=== PATIENT | female | born 1995 | race African-American/Black ===

== ENCOUNTER 2016-10-14 20:42 | Emergency (ER) | payer MEDICAID ==
[2016-10-14 23:13] LABS: ABSOLUTE BASOPHILS # (AUTO) 0.1 10^3/uL (0.0-0.2); ABSOLUTE EOSINOPHILS # (AUTO) 0.1 10^3/uL (0.0-0.6); ABSOLUTE LYMPHOCYTES (AUTO) 2.8 10^3/uL (0.5-4.7); ABSOLUTE MONOCYTES (AUTO) 0.8 10^3/uL (0.1-1.4); ABSOLUTE NEUT (AUTO) 5.1 10^3/uL (1.7-8.2); BASOPHILS % (AUTO) 0.7 % (0-2); EOSINOPHILS % (AUTO) 1.7 % (0-6); HEMATOCRIT 37.6 % (36.0-47.0); HEMOGLOBIN 12.7 g/dL (12.0-15.5); HGB HCT DIFFERENCE 0.5; LYMPHOCYTES % (AUTO) 31.8 % (13-45); MEAN CORPUSCULAR HEMOGLOBIN 26.1 pg (27.0-33.4); MEAN CORPUSCULAR HGB CONC 33.7 g/dL (32.0-36.0); MEAN CORPUSCULAR VOLUME 77 fl (80-97); MONOCYTES % (AUTO) 8.6 % (3-13); RED BLOOD COUNT 4.87 10^6/uL (3.72-5.28); RED CELL DISTRIBUTION WIDTH 14.6 % (11.5-14.0); SEGMENTED NEUTROPHILS % (AUTO) 57.2 % (42-78); WHITE BLOOD COUNT 8.9 10^3/uL (4.0-10.5)
[2016-10-14 23:25] LABS: ANION GAP 12 (5-19); BLOOD UREA NITROGEN 13 mg/dL (7-20); CALCIUM 9.8 mg/dL (8.4-10.2); CARBON DIOXIDE 24 mmol/L (22-30); CHLORIDE 103 mmol/L (98-107); CREATININE RESULT 0.59 mg/dL (0.52-1.25); GLUCOSE 84 mg/dL (75-110); POTASSIUM 4.2 mmol/L (3.6-5.0); SODIUM 139.4 mmol/L (137-145)
[2016-10-14 23:29] LABS: APPEARANCE,URINE CLEAR; BILIRUBIN,URINE NEGATIVE (NEGATIVE); GLUCOSE, URINE NEGATIVE (NEGATIVE); KETONES,URINE NEGATIVE (NEGATIVE); LEUKOCYTE ESTERASE,URINE NEGATIVE (NEGATIVE); NITRITE,URINE NEGATIVE (NEGATIVE); PROTEIN,URINE NEGATIVE (NEGATIVE); URINE SPECIFIC GRAVITY 1.015
--- NOTE | 2016-10-15 00:42 | ER Document Report ---
ED GI/ - General Information source: Patient TRAVEL OUTSIDE OF THE [place] IN LAST 30 DAYS: No - HPI Patient complains to provider of: Pelvic pain - cramping, , Vaginal bleeding, Vaginal discharge - intermittent Quality of pain: Cramping Menstrual period history: <OSCAR FARRIS - Last Filed: 10/15/16 02:33> <ENRIQUEALBERT JACI - Last Filed: 10/15/16 04:55> - General Chief Complaint: Vaginal Bleeding Stated Complaint: VAGINAL BLEEDING Time Seen by Provider: 10/14/16 22:40 Notes: Patient is a 21 year old female who presents to the ED with complaints of vaginal bleeding during . Patient is currently 10 weeks and is seen by the health department. She is suppose to have her first ultrasound tomorrow. Patient states she is having intermittent discharge and cramping. Patient is taking her vitamin. Patient denies any trouble with urination. Patient has not had intercourse recently . This is patients first . No other concerns or complaints at this time. (OSCAR FARRIS) - Related Data Allergies/Adverse Reactions: No Known Allergies Allergy (Verified 03/09/16 08:29) Past Medical History - General Information source: Patient - Social History Smoking Status: Unknown if Ever Smoked Family History: Reviewed & Not Pertinent Patient has suicidal ideation: No Patient has homicidal ideation: No Renal/ Medical History: Denies: Hx Peritoneal Dialysis - Immunizations Hx Diphtheria, Pertussis, Tetanus Vaccination: Yes <OSCAR FARRIS - Last Filed: 10/15/16 02:33> Review of Systems - Review of Systems Constitutional: No symptoms reported EENT: No symptoms reported Cardiovascular: No symptoms reported Respiratory: No symptoms reported Gastrointestinal: See HPI, Abdominal pain - intermittent pelvic cramping Genitourinary: No symptoms reported Female Genitourinary: See HPI, , Vaginal discharge - intermittent, Vaginal bleeding, Other - plevic cramping Musculoskeletal: No symptoms reported Skin: No symptoms reported Hematologic/Lymphatic: No symptoms reported Neurological/Psychological: No symptoms reported <OCSAR FARRIS - Last Filed: 10/15/16 02:33> Physical Exam - General General appearance: Appears well, Alert In distress: None - HEENT Head: Normocephalic, Atraumatic Eyes: Normal Extraocular movements intact: Yes Pupils: PERRL - Respiratory Respiratory status: No respiratory distress - Cardiovascular Rhythm: Regular - Abdominal Inspection: Normal - Back Back: Normal - Extremities General upper extremity: Normal inspection, Normal ROM General lower extremity: Normal inspection, Normal ROM - Neurological Neuro grossly intact: Yes Cognition: Normal Orientation: AAOx4 [place] Coma Scale Eye Opening: Spontaneous [place] Coma Scale Verbal: Oriented Heather Coma Scale Motor: Obeys Commands [place] Coma Scale Total: 15 Speech: Normal - Psychological Associated symptoms: Normal affect, Normal mood - Skin Skin Temperature: Warm Skin Moisture: Dry Skin Color: Normal <OSCAR FARRIS - Last Filed: 10/15/16 02:33> Course - Laboratory Result Diagrams: 10/14/16 22:00 10/14/16 22:00 <OSCAR FARRIS - Last Filed: 10/15/16 02:33> - Laboratory Result Diagrams: 10/14/16 22:00 10/14/16 22:00 - Diagnostic Test Radiology reviewed: Image reviewed, Reports reviewed <ALBERT NUNEZ - Last Filed: 10/15/16 04:55> - Re-evaluation Re-evalutation: 10/15/16 Patient had bedside ultrasound initially which did not correlate with total hCG. Patient had formal ultrasound which is showing a blighted ovum. Patient given the results. Apparently has been trying to get for the last 2 years. Patient does not want pelvic exam. She was just like to go home and follow-up with her ENGINEERING COORDINATOR. Stable for discharge. Return for any worsening or concerning symptoms. (ALBERT NUNEZ) - Vital Signs Vital signs: Temp Pulse Resp BP Pulse Ox 98.3 F 99 20 120/74 99 10/14/16 21:10 10/14/16 21:10 10/14/16 21:10 10/14/16 21:10 10/14/16 21:10 - Laboratory Laboratory results interpreted by co: 10/14/16 10/14/16 10/14/16 22:00 22:00 22:00 MCV 77 L MCH 26.1 L RDW 14.6 H Beta HCG, Quant 79948.00 H Urine Urobilinogen 4.0 H Urine HCG, Qual POSITIVE H Discharge <OSCAR FARRIS - Last Filed: 10/15/16 02:33> <ALBERT NUNEZ - Last Filed: 10/15/16 04:55> - Discharge Clinical Impression: Blighted ovum Condition: Stable Disposition: HOME, SELF-CARE Additional Instructions: Please follow-up with your ENGINEERING COORDINATOR in the morning as scheduled. Please take a copy of the ultrasound report with you. Forms: Return to Work Scribe Attestation: 10/15/16 04:55 I personally performed the services described in the documentation, reviewed and edited the documentation which was dictated to the scribe in my presence, and it accurately records my words and actions. (ALBERT NUNEZ) Scribe Documentation - Scribe Written by Tracy:: tracy Hernandez, 10/15/2016, 0100 acting as scribe for :: Enrique <OSCAR FARRIS - Last Filed: 10/15/16 02:33>
--- NOTE | 2016-10-15 02:08 | RADIOLOGY REPORT (SQ) ---
EXAM DESCRIPTION: U/S OB TRANSVAGINAL W/O DOP COMPLETED DATE/TIME: 10/15/2016 1:37 am REASON FOR STUDY: evaluate for IUP COMPARISON: None. TECHNIQUE: Transvaginal static and realtime grayscale images acquired of the pelvis. Additional nicole cted spectral and color Doppler images recorded. All images stored on PACs. [facility] LIMITATIONS: None. FINDINGS: UTERUS: No visualized intrauterine . Irregular intrauterine gestational sac kalyn ures with mean sac diameter of 1.8 cm which if viable would correspond with a gestational age of 6 we eks and 5 days. No definite yolk sac. RIGHT ADNEXA: Normal ovary with normal vascular flow. No adnexal free fluid. No adnexal masses. 3.0 cm. LEFT ADNEXA: Normal ovary with normal vascular flow. No adnexal free fluid. No adnexal masses. 3.1 cm. FREE FLUID: None. OTHER: No other significant finding. IMPRESSION: NO VISUALIZED VIABLE . Irregular intrauterine gestational sac measures 1.8 cm in mean sac diameter and may represent an anembryonic gestation ("blighted ovum"). Follow-up ultraso und recommended in 2 weeks or sooner as clinically warranted. ECTOPIC CANNOT BE EXCLUDED. FOLLOW-UP ULTRASOUND AND SERIAL BHCG LEVELS STRONGLY RECOMMENDED TO ACCURATELY ASSESS STATU S. COMMENT: HCG levels in early chart *3 weeks: 5-50 mIU/ml *4 weeks: 5-426 mIU/ml *5 weeks: 18-7,340 mIU/ml *6 weeks: 1,080-56,500 mIU/ml *7-8 weeks: 7,560-229,000 mIU/ml *9-12 weeks: 25,700- 288,000 mIU/ml *13-16 weeks: 13,300-254,000 mIU/ml *17-24 weeks: 4,060-165,400 mIU/ml *25-40 weeks: 3,640-117,000 mIU/ml TECHNICAL DOCUMENTATION: JOB ID: [id number] [employer]- All Rights Reserved
[2016-10-15 08:45] VITALS: BP 128/87
== END 2016-10-15 02:34 | disposition home or self-care (01) ==
LOC: ER 20:42
DX: O02.0 Blighted ovum and nonhydatidiform mole (principal); O46.91 Antepartum hemorrhage, unspecified, first trimester; Z3A.10 10 weeks gestation of pregnancy
CPT/HCPCS: 36415; 76817; 80048; 81001; 81025; 84702; 85025; 86900; 86901; 99284

== ENCOUNTER → 2018-01-04 | Outpatient (CLI) | payer MEDICAID | LOC: OD 14:12 | PROVIDERS: ATTEND Specialist | DX: R07.0 Pain in throat (principal) | CPT/HCPCS: 87880 ==

== ENCOUNTER 2018-05-31 12:41 | Outpatient (CLI) | payer MEDICAID ==
--- NOTE | 2018-05-31 13:47 | Non Stress Test Report ---
Non Stress Test Datetime Report Generated by CPN: 05/31/2018 13:47 DEMOGRAPHIC EGA NST: 34.4 INDICATION Indication for Study: Diabetes Mellitus; Ordered by Provider VITAL SIGNS Temperature - NST: 98.0 Pulse - NST: 109 Pulse - NST: 109 RESP - NST: 16 NBPSYS NST: 112 NBPDIA NST: 69 MONITORING Monitor Explained: Monitor Explained; Test Explained; Patient Verbalized Understanding Time on Monitor: 05/31/2018 12:55 Time on Monitor: 05/31/2018 13:05 Time off Monitor: 05/31/2018 13:34 Time off Monitor: 05/31/2018 13:34 NST Duration: 39 NST INTERVENTIONS NST Interventions: None Physician Notified NST: A. Jansen, CNM BABY A: [id number] BABY A Movement : Present Contraction Frequency : none FHR Baseline : 140 Accelerations : 15X15 Decelerations : None Variability : Moderate 6-25bpm NST Review: Questionable if Meets Criteria for Reactive NST NST Review and Verified By : BL ISABELAND, RN NST Results: Reactive NST REPORT Report Trigger: Send Report
== END 2018-05-31 13:37 | disposition home or self-care (01) ==
LOC: LC 12:41
PROVIDERS: ATTEND Obstetrics & Gynecology
PROC: 4A1HXCZ Monitoring of Products of Conception, Cardiac Rate, External Approach (ICD-10-PCS; principal; 2018-05-31)
DX: O24.913 Unspecified diabetes mellitus in pregnancy, third trimester (principal); Z3A.34 34 weeks gestation of pregnancy
CPT/HCPCS: 59025

== ENCOUNTER 2018-06-15 11:06 | Outpatient (CLI) | payer MEDICAID ==
--- NOTE | 2018-06-15 13:50 | RADIOLOGY REPORT (SQ) ---
EXAM DESCRIPTION: U/S PROFILE W/O STRESS COMPLETED DATE/TIME: 06/15/2018 1:41 pm REASON FOR STUDY: non reactive NST COMPARISON: No previous this TECHNIQUE: Limited falk-scale realtime and static images of the fetus to measure specified parameter s. LIMITATIONS: None. FINDINGS: HEART RATE: 130 to 137 beats per minute. JIMMY: 6.2 cm. BREATHING MOVEMENT: 2 points. MOVEMENT: 2 points. POSTURE AND TONE: 2 points. QUALITATIVE JIMMY: 2 points. OTHER: Fetus cephalic orientation IMPRESSION: BIOPHYSICAL PROFILE: 11/17. Trimester of : Third - 28 weeks to delivery COMMENT: BREATHING MOVEMENTS: 2 POINTS: PRESENT 0 POINTS: ABSENT MOTION: 2 POINTS: PRESENT 0 POINTS: ABSENT TONE: 2 POINTS: PRESENT 0 POINTS: ABSENT AMNIOTIC FLUID VOLUME: 2 POINTS: LARGEST POCKET GREATER THAN 2 CM DEPTH. 0 POINTS: NO POCKET OF 2 CM. TECHNICAL DOCUMENTATION: JOB ID: [id number] [employer]- All Rights Reserved Reading location - IP/workstation name: [email or web address]
--- NOTE | 2018-06-15 14:34 | Non Stress Test Report ---
Non Stress Test Datetime Report Generated by CPN: 06/15/2018 14:34 DEMOGRAPHIC EGA NST: 36.5 INDICATION Indication for Study: Ordered by Provider Indication for Study (NST) Other: repeat NST MONITORING Monitor Explained: Monitor Explained; Test Explained; Patient Verbalized Understanding Time on Monitor: 06/15/2018 13:44 Time off Monitor: 06/15/2018 14:23 NST Duration: 39 NST INTERVENTIONS Physician Notified NST: C. Lucas CNM BABY A: [id number] BABY A Movement : Present Contraction Frequency : 0 FHR Baseline : 125 Accelerations : 15X15 Decelerations : None Variability : Moderate 6-25bpm NST Review: Meets Criteria for Reactive NST NST Review and Verified By : Franco Tinsley RN NST Results: Reactive NST REPORT Report Trigger: Send Report
== END 2018-06-15 14:25 | disposition home or self-care (01) ==
LOC: LC 11:06
PROVIDERS: ATTEND Student in an Organized Health Care Education/Training Program
PROC: 4A1HXCZ Monitoring of Products of Conception, Cardiac Rate, External Approach (ICD-10-PCS; principal; 2018-06-15)
DX: Z36.2 Encounter for other antenatal screening follow-up (principal)
CPT/HCPCS: 76819; 94760

== ENCOUNTER 2018-07-04 10:42 | Outpatient (CLI) | payer MEDICAID ==
--- NOTE | 2018-07-04 12:20 | Non Stress Test Report ---
Non Stress Test Datetime Report Generated by CPN: 07/04/2018 12:19 DEMOGRAPHIC EGA NST: 39.3 INDICATION Indication for Study: Ordered by Provider; Other Indication for Study (NST) Other: repeat NST VITAL SIGNS Temperature - NST: 98.1 Pulse - NST: 102 RESP - NST: 18 NBPSYS NST: 97 NBPDIA NST: 61 MONITORING Monitor Explained: Monitor Explained; Test Explained; Patient Verbalized Understanding Time on Monitor: 07/04/2018 10:48 Time off Monitor: 07/04/2018 11:24 NST Duration: 36 NST INTERVENTIONS NST Interventions: PO Hydration; Reposition Patient Physician Notified NST: N CNM BABY A: [id number] BABY A Movement : Present Contraction Frequency : denies FHR Baseline : 130 Accelerations : 15X15 Decelerations : None Variability : Moderate 6-25bpm NST Review: Meets Criteria for Reactive NST NST Review and Verified By : Juliano Garcia RN NST Results: Reactive NST REPORT Report Trigger: Send Report
== END 2018-07-04 11:30 | disposition home or self-care (01) ==
LOC: LC 10:42
PROVIDERS: ATTEND Obstetrics & Gynecology
PROC: 4A1HXCZ Monitoring of Products of Conception, Cardiac Rate, External Approach (ICD-10-PCS; principal; 2018-07-04)
DX: Z34.93 Encounter for supervision of normal pregnancy, unspecified, third trimester (principal)
CPT/HCPCS: 59025

== ENCOUNTER 2018-07-08 10:36 | Outpatient (CLI) | payer MEDICAID ==
[2018-07-08 11:12] LABS: APPEARANCE,URINE CLOUDY; BILIRUBIN,URINE NEGATIVE (NEGATIVE); COLOR,URINE YELLOW; GLUCOSE, URINE NEGATIVE (NEGATIVE); KETONES,URINE TRACE mg/dL (NEGATIVE); LEUKOCYTE ESTERASE,URINE MODERATE (NEGATIVE); NITRITE,URINE NEGATIVE (NEGATIVE); PROTEIN,URINE NEGATIVE (NEGATIVE); URINE SPECIFIC GRAVITY 1.021
[2018-07-08 11:30] LABS: URINE AMPHETAMINES SCREEN NEGATIVE; URINE BARBITURATES SCREEN NEGATIVE; URINE BENZODIAZEPINES SCREEN NEGATIVE; URINE COCAINE SCREEN NEGATIVE; URINE MARIJUANA (THC) SCREEN NEGATIVE; URINE METHADONE SCREEN NEGATIVE; URINE PHENCYCLIDINE SCREEN NEGATIVE
--- NOTE | 2018-07-08 11:49 | Non Stress Test Report ---
Non Stress Test Datetime Report Generated by CPN: 07/08/2018 11:49 DEMOGRAPHIC Test Number: 4 EGA NST: 40.0 INDICATION Indication for Study: Ordered by Provider; Other Indication for Study (NST) Other: LABOR CHECK VITAL SIGNS Temperature - NST: 97.1 Pulse - NST: 97 RESP - NST: 18 NBPSYS NST: 115 NBPDIA NST: 74 MONITORING Monitor Explained: Monitor Explained; Test Explained; Patient Verbalized Understanding Time on Monitor: 07/08/2018 11:00 Time off Monitor: 07/08/2018 11:50 NST Duration: 50 NST INTERVENTIONS NST Interventions: PO Hydration; Reposition Patient Physician Notified NST: N Guy reviewed NST Physician Notified NST: N ERNESTO, CNM REVIEWED STRIP BABY A: [id number] BABY A Movement : Present Movement : Present Contraction Frequency : occasional FHR Baseline : 135 Accelerations : 15X15 Decelerations : None Decelerations : None Variability : Moderate 6-25bpm NST Review: Meets Criteria for Reactive NST NST Review: Meets Criteria for Reactive NST NST Review and Verified By : LINDA MITCHELLT Results: Reactive NST Results: Reactive NST REPORT Report Trigger: Send Report
== END 2018-07-08 12:05 | disposition home or self-care (01) ==
LOC: LC 10:36
PROVIDERS: ATTEND Obstetrics & Gynecology
PROC: 4A1HXCZ Monitoring of Products of Conception, Cardiac Rate, External Approach (ICD-10-PCS; principal; 2018-07-08)
DX: O47.1 False labor at or after 37 completed weeks of gestation (principal); O48.0 Post-term pregnancy; Z3A.40 40 weeks gestation of pregnancy
CPT/HCPCS: 80307; 81005; 84112

== ENCOUNTER 2018-07-09 21:20 | Inpatient (IN) | payer MEDICAID ==
[2018-07-09 21:51] LABS: APPEARANCE,URINE CLEAR; BILIRUBIN,URINE NEGATIVE (NEGATIVE); COLOR,URINE YELLOW; GLUCOSE, URINE NEGATIVE (NEGATIVE); KETONES,URINE NEGATIVE (NEGATIVE); LEUKOCYTE ESTERASE,URINE TRACE (NEGATIVE); NITRITE,URINE NEGATIVE (NEGATIVE); PROTEIN,URINE NEGATIVE (NEGATIVE); URINE SPECIFIC GRAVITY 1.005
[2018-07-09 22:08] LABS: URINE AMPHETAMINES SCREEN NEGATIVE; URINE BARBITURATES SCREEN NEGATIVE; URINE BENZODIAZEPINES SCREEN NEGATIVE; URINE COCAINE SCREEN NEGATIVE; URINE MARIJUANA (THC) SCREEN NEGATIVE; URINE METHADONE SCREEN NEGATIVE; URINE PHENCYCLIDINE SCREEN NEGATIVE
[2018-07-09] MEDS ORDERED: LIDOCAINE 1% INJ-PF (10 MG/ML) 30 ML SDV ONE (23:12)
[2018-07-09] MEDS ORDERED: OXYTOCIN/NORMAL SALINE 20 UNIT/1,000 ML RTUINJ ONE (23:12)
[2018-07-09] MEDS ORDERED: OXYTOCIN 10 UNIT/ML VIAL ONE (23:12)
[2018-07-09] MEDS ORDERED: PENICILLIN G-K 5 MILLION UNIT VIAL ONE (23:12)
[2018-07-09] MEDS ORDERED: MISOPROSTOL 0.2 MG TABLET ONE (23:12)
[2018-07-09] MEDS ORDERED: PENICILLIN G POTASSIUM 5,000,000 UNIT in DEXTROSE 5%-WATER 100 ML IV ONE (23:14)
[2018-07-09] MEDS ORDERED: RINGERS SOLUTION,LACTATED 1,000 ML IV PRN (23:14)
[2018-07-09] MEDS ORDERED: RINGERS SOLUTION,LACTATED 1,000 ML IV ONE (23:14)
[2018-07-09 23:47] LABS: ABSOLUTE LYMPHOCYTES (AUTO) 1.6 10^3/uL (0.5-4.7); ABSOLUTE MONOCYTES (AUTO) 0.8 10^3/uL (0.1-1.4); BASOPHILS % (AUTO) 0.4 % (0-2); EOSINOPHILS % (AUTO) 0.2 % (0-6); HEMATOCRIT 34.6 % (36.0-47.0); HEMOGLOBIN 12.4 g/dL (12.0-15.5); LYMPHOCYTES % (AUTO) 15.7 % (13-45); MEAN CORPUSCULAR HEMOGLOBIN 27.9 pg (27.0-33.4); MEAN CORPUSCULAR VOLUME 78 fl (80-97); MONOCYTES % (AUTO) 7.4 % (3-13); PLATELET COUNT 191 10^3/uL (150-450); RED BLOOD COUNT 4.46 10^6/uL (3.72-5.28); RED CELL DISTRIBUTION WIDTH 15.1 % (11.5-14.0); SEGMENTED NEUTROPHILS % (AUTO) 76.3 % (42-78); TOTAL CELLS COUNTED % (AUTO) 100 %; WHITE BLOOD COUNT 10.4 10^3/uL (4.0-10.5)
[2018-07-10] MEDS ORDERED: PHENYLEPHRINE HCL INJ/PF 10 MG/1 ML SDV ONE (01:38)
[2018-07-10] MEDS ORDERED: FENTANYL CITRATE INJ/PF 100 MCG/2 ML AMPUL ONE (01:38)
[2018-07-10] MEDS ORDERED: EPHEDRINE SULFATE INJ 50 MG/1 ML AMPULE ONE (01:39)
[2018-07-10] MEDS ORDERED: BUPIVACAINE HCL 0.25 % INJ/PF (2.5 MG/1 ML) 30 ML VIAL ONE (01:39)
[2018-07-10] MEDS ORDERED: FENTANYL/BUPIVACAINE/NS/PF 300 MCG/150 ML RTUINJ EPI ONE (01:39)
[2018-07-10] MEDS ORDERED: LIDOCAINE 1.5%/EPINEPHRINE INJ 5 ML AMP ONE (01:57)
[2018-07-10] MEDS ORDERED: PENICILLIN G-K 5 MILLION UNIT VIAL ONE ×3 (03:33→11:43)
[2018-07-10] MEDS: PENICILLIN G POTASSIUM 2,500,000 UNIT in DEXTROSE 5%-WATER 50 ML IV SCH ×4 (03:40→18:39)
--- NOTE | 2018-07-10 08:00 | Admission Physical ---
Datetime Report Generated by CPN: 07/10/2018 08:00 CURRENT ADMISSION Chief Complaint: Uterine Contractions Chief Complaint Other: Presented with contractions at 1cm with change to 3cm. Indication for Induction: Not Applicable Admit Impression : Term, Intrauterine ; Intact Membranes Admit Impression- Other: Latent labor Admit Plan: Admit to Unit; Initiate Labor Protocol ALLERGIES Medication Allergies: No Medication Allergies: No Known Allergies (07/09/2018) Latex: No Latex Allergies Food Allergies: none Environmental Allergies: none OBSTETRICAL HISTORY EDC: 07/08/2018 00:00 : 2 Para: 0 Term: 0 : 0 SAB: 1 IAB: 0 Ectopic: 0 Livin Cesareans: 0 VBACs: 0 Multiple Births: 0 Gestational Diabetes: Yes Rh Sensitization: No Incompetent Cervix: No RUPERT: No Infertility: No ART Treatment: No Uterine Anomaly: No IUGR: No Hx Previous C/S: No Macrosomia: No Hx Loss/Stillborn: No PIH: No Hx : No Placenta Previa/Abruption: No Depression/PP Depression: No PTL/PROM: No Post Hemorrhage: No Current Procedures: Ultrasound Obstetrical History Comments: G1- SAB 10 weeks G2- current , GDM diet controlled SEE RECORDS Alcohol: No Marijuana : No Cocaine: No Other Illicit Drugs: No Cigarettes: Former Smoker. [id number] MEDICAL HISTORY Diabetes: Yes Diabetes Type: Gestational Diabetes Blood Transfusion: No Pulmonary Disease (Asthma, TB): No Breast Disease: No Hypertension: No Surgical Endoscopist Surgery: No Heart Disease: No Hosp/Surgery: No Autoimmune Disorder: No Anesthetic Complications: No Kidney Disease: No Abnormal Pap Smear: No Neuro/Epilepsy: No Psychiatric Disorders: No Other Medical Diseases: No Hepatitis/Liver Disease: No Significant Family History: No Varicosities/Phlebitis: No Trauma/Violence : No Thyroid Dysfunction: No Medical History Comments: GDM diet controlled INFECTIOUS HISTORY Gonorrhea: No Genital Herpes: Yes Chlamydia: No Tuberculosis: No Syphilis: No Hepatitis: No HIV/AIDS Exposure: No Rash or Viral Illness: No HPV: No Infectious History Comments: HSV- did not like taking valtrex, rx for acyclovir 06/15/18 PHYSICAL EXAM General: Normal HEENT: Normal Heart: Normal Lungs: Normal Abdomen: Normal Genitourinary Exam: Normal Extremities: Normal Pelvic Type: Adequate Vital Signs: Reviewed; Within Normal Limits VAGINAL EXAM Dilatation: 7 Contraction Comments: q 2-4 min MEMBRANES Membranes: Intact FETUS A EGA: 40.2 Monitoring: External US FHR- Baseline: 145 Variability: Moderate 6-25bpm Accelerations: 15X15 Decelerations: None FHR Category: Category I PLANS FOR LABOR AND DELIVERY Labor and Delivery: None Pain Management: Epidural Feeding Preference: Both Benefit of Breast Feed Discussed: Yes Circumcision: Yes INFORMED CONSENT Signature: with User ID: [email or web address]
[2018-07-10] MEDS ORDERED: PROMETHAZINE HCL 25 MG TABLET PO PRN (16:28)
[2018-07-10] MEDS ORDERED: ACETAMINOPHEN WITH CODEINE #3 TABLET PO PRN ×2 (16:28)
[2018-07-10] MEDS ORDERED: MEASLES,MUMPS&RUBELLA VACC/PF 0.5 ML VIAL SUBCUT PRN (16:28)
[2018-07-10] MEDS ORDERED: GLYCERIN/WITCH HAZEL LEAF 1 EACH MED..PAD TP PRN (16:28)
[2018-07-10] MEDS ORDERED: ZOLPIDEM TARTRATE 5 MG TABLET PO PRN (16:28)
[2018-07-10] MEDS ORDERED: BENZOCAINE/MENTHOL AEROSOL SPRAY 56 ML TOP PRN (16:28)
[2018-07-10] MEDS ORDERED: PROMETHAZINE HCL 25 MG SUPP.RECT PR PRN (16:28)
[2018-07-10] MEDS ORDERED: OXYTOCIN/NORMAL SALINE 20 UNIT/1,000 ML RTUINJ IV PRN (16:28)
[2018-07-10] MEDS ORDERED: DIBUCAINE 1% OINTMENT 56 GM TP PRN (16:28)
[2018-07-10] MEDS ORDERED: NA PHOS,M-B/NA PHOS,DI-BA (ADULT) 133 ML ENEMA PR PRN (16:28)
[2018-07-10] MEDS ORDERED: PSEUDOEPHEDRINE HCL 30 MG TABLET PO PRN (16:28)
[2018-07-10] MEDS ORDERED: MAGNESIUM HYDROXIDE SUSP 30 ML UDCUP PO PRN (16:28)
[2018-07-10] MEDS ORDERED: DIPHENHYDRAMINE HCL 25 MG CAPSULE PO PRN (16:28)
[2018-07-10] MEDS ORDERED: PROMETHAZINE HCL INJ 25 MG/1 ML VIAL IV PRN (16:28)
[2018-07-10] MEDS ORDERED: ACETAMINOPHEN 650 MG SUPP.RECT PR PRN (16:28)
[2018-07-10] MEDS ORDERED: DIPH/PERTUSS(ACELL)/TETANUS VAC/PF 0.5 ML SYR (>=10YO) IM PRN (16:28)
[2018-07-10] MEDS ORDERED: IBUPROFEN 800 MG TABLET ONE ×2 (16:48→17:42)
--- NOTE | 2018-07-10 18:25 | Delivery Summary ---
Del Sum A-C Datetime Report Generated by CPN: 07/10/2018 18:25 DELIVERY PERSONNEL DELIVERY PERSONNEL: [id number] Delivery Doctor:: Ashly Atkins MD Labor and Delivery Nurse:: Sharon Nath RNwallpaper installer Nurse:: YOHAN Naranjo Nursery Nurse:: Sapphire Uribe RN Blast Furnace Supervisor/FAN BLADE ALIGNER: Savana Bright, COMPOSITE BOAT BUILDER MATERNAL INFORMATION Delivery Anesthesia: Epidural Medications After Delivery: Pitocin Drip 20 Units/1000ml NSS Maternal Complications: Prolonged Second Stage > 2 Hrs LABOR SUMMARY EDC: 07/08/2018 00:00 No. Babies in Womb: 1 Attempted: No Labor Anesthesia: Epidural LABOR INFORMATION Reason for Induction: Not Applicable Onset of Labor: 07/10/2018 00:33 Complete Dilatation: 07/10/2018 13:41 Oxytocin: N/A Group B Beta Strep: positive Antibiotics # of Doses: 4 Antibiotics Time of Last Dose: 1151 Name of Antibiotic Given: PCN Steroids Given: None Reason Steroids Not Administered: Not Applicable MEMBRANES Membranes Rupture Method: Artificial Rupture of Membranes: 07/10/2018 08:12 Length of Rupture (hr): 7.95 Amniotic Fluid Color: Clear Amniotic Fluid Amount: Moderate Amniotic Fluid Odor: Normal STAGES OF LABOR Stage 1 hr: 13 Stage 1 min: 8 Stage 2 hr: 2 Stage 2 min: 28 Stage 3 hr: 0 Stage 3 min: 6 Total Time in Labor hr: 15 Total Time in Labor min: 42 VAGINAL DELIVERY Episiotomy: None Laceration #1: Vaginal Laceration Extension #1: N/A Laceration #2: None Laceration Extension #2: N/A Laceration #3: None Laceration Extension #3: N/A Laceration Repair: Yes Laceration Repair Note: Two small vaginal laceration repaired with one interrupted chromic suture each. Sponge Count Correct: Yes Sharps Count Correct: Yes CSECTION DELIVERY Primary Indication: N/A Secondary Indication: N/A CSection Incidence: N/A Labor: N/A Elective: N/A CSection Incision: N/A BABY A INFORMATION Infant Delivery Date/Time: 07/10/2018 16:09 Method of Delivery: Vaginal Born in Route : No : N/A Forceps: N/A Vacuum Extraction: N/A Shoulder Dystocia : No PRESENTATION/POSITION BABY A Presentation: Cephalic Cephalic Presentation: Vertex Vertex Position: Right Occipital Anterior Breech Presentation: N/A PLACENTA INFORMATION BABY A Placenta Delivery Time : 07/10/2018 16:15 Placenta Method of Delivery: Spontaneous Placenta Status: Delivered SCORES BABY A Heart Rate 1 min: >100 bpm Resp Effort 1 min: Slow, Irregular Reflex Irritability 1 min: Cough or Sneeze or Pulls Away Muscle Tone 1 min: Some Flexion of Extremities Color 1 min: Blue/Pale Resuscitation Effort 1 min: Tactile Stimulation; Oxygen SCORE 1 MIN: 6 Heart Rate 5 min: >100 bpm Resp Effort 5 min: Good Cry Reflex Irritability 5 min: Cough or Sneeze or Pulls Away Muscle Tone 5 min: Some Flexion of Extremities Color 5 min: Body Commercial Point, Extremities Blue Resuscitation Effort 5 min: Tactile Stimulation; Oxygen SCORE 5 MIN: 8 INFORMATION BABY A Gestational Age at Delivery: 40.2 Gestational Status: Full Term- 39- 40.6 Weeks Outcome : Liveborn Condition : Stable Sex: Male IDENTIFICATION BABY A Verification Date/Time: 07/03/2018 16:37 ID Band Number: [id number] Mother's Name Verified: Yes RN Verifying Infant: J Field RN/D Bellavance RN WEIGHT/LENGTH BABY A Birthweight (gm): 3097 Infant Weight (lb): 6 Weight (oz): 13 Length (in): 20.50 Length (cm): 52.07 CORD INFORMATION BABY A No. Cord Vessels: 3 Nuchal Cord : Around Neck x1, Loose Cord Blood Taken: Yes-For Storage (Mom's Blood type +) Suction: Mouth; Nose ASSESSMENT BABY A Complications: Multiple Variable Decels Complications- Other: terminal mec Physical Findings at Delivery: Caput Succedaneum; Molding of the Head Respirations: Appears Normal Skin to Skin: Yes Sheet Metal Former/ALS Called : No Care By: Nidia Uribe RN Transferred To: Remains with Mother BABY B INFORMATION : N/A SIGNATURES Signature: with User ID: [email or web address]
[2018-07-10] MEDS ORDERED: DOCUSATE SODIUM 100 MG CAPSULE ONE (18:44)
[2018-07-10] MEDS ORDERED: FERROUS SULFATE 325 MG TABLET PO ONE (18:45)
[2018-07-10] MEDS: DOCUSATE SODIUM 100 MG CAPSULE PO SCH (18:46)
[2018-07-10] MEDS: FERROUS SULFATE 325 MG TABLET PO SCH (18:46)
[2018-07-10] MEDS ORDERED: ONDANSETRON 4 MG TAB.RAPDIS ONE (20:44)
[2018-07-10] MEDS ORDERED: ONDANSETRON 4 MG TAB.RAPDIS PO PRN (20:50)
[2018-07-11] MEDS: IBUPROFEN 800 MG TABLET PO SCH ×4 (06:41→22:20)
[2018-07-11] MEDS: FAMOTIDINE 20 MG TABLET PO SCH ×3 (06:42→22:20)
[2018-07-11 06:56] LABS: HEMATOCRIT 30.8 % (36.0-47.0); MEAN CORPUSCULAR HEMOGLOBIN 27.9 pg (27.0-33.4); MEAN CORPUSCULAR HGB CONC 35.6 g/dL (32.0-36.0); MEAN CORPUSCULAR VOLUME 78 fl (80-97); PLATELET COUNT 157 10^3/uL (150-450); RED BLOOD COUNT 3.94 10^6/uL (3.72-5.28); RED CELL DISTRIBUTION WIDTH 15.6 % (11.5-14.0); WHITE BLOOD COUNT 18.8 10^3/uL (4.0-10.5)
--- NOTE | 2018-07-11 08:54 | PDOC PROGRESS REPORT ---
Subjective-OB Progress Note for:: 07/11/18 Subjective: 22yo G2 now P1 s/p ppd 1. Pt. ambulating, and voiding without difficulty. Reports pain well controlled with medication. No concerns at this time Physical Exam (OB) Vital Signs: Temp Pulse Resp BP Pulse Ox 98.0 F 83 15 112/65 98 07/11/18 07:58 07/11/18 07:58 07/11/18 07:58 07/11/18 07:58 07/11/18 07:58 Intake & Output 07/10/18 07/11/18 07/12/18 06:59 06:59 06:59 Intake Total 50 100 Balance 50 100 Weight 78.2 kg - General General Appearance: Appears well In distress: None - PIH/Pre-Eclampsia Headache: Absent Epigastric Pain: No Visual Changes: No - Episiotomy/Laceration Site Condition: Well Approximated - Lochia Lochia Amount: Small 10-25 ml Lochia Color: Rubra/Red - Abdomen Description: Soft, Round Hernia Present: No Fundal Description: Firm, Midline Fundal Height: u/u - u/2 - Respiratory Respiratory Status: No respiratory distress - Extremities Upper extremity: Normal inspection Lower extremities: Normal inspection - Neurological Cognition: Normal Orientation: AAOx4 - Psychological Associated symptoms: Normal affect, Normal mood Objective-Diagnostic Laboratory: 07/11/18 06:40 07/11/18 06:40 WBC 18.8 H RBC 3.94 Hgb 11.0 L Hct 30.8 L MCV 78 L MCH 27.9 MCHC 35.6 RDW 15.6 H Plt Count 157 Assessment and Plan(PN) - Assessment and Plan (1) Delivery normal Is this a current diagnosis for this admission?: Yes Plan: routine pp care (2) Obstetric vaginal laceration, delivered, current hospitalization Is this a current diagnosis for this admission?: Yes Plan: continue to monitor for s/s of infection (3) Gestational diabetes mellitus (GDM) affecting second Is this a current diagnosis for this admission?: Yes Plan: delivered, diet controlled. Will need f/u pp - Time Spent with Patient Time with patient: Less than 15 minutes Medications reviewed and adjusted accordingly: Yes - Disposition Anticipated Discharge: Home Within: within 24 hours
[2018-07-11] MEDS: FERROUS SULFATE 325 MG TABLET PO SCH ×2 (10:13→19:04)
[2018-07-11] MEDS: PRENATAL VITAMIN W DHA CAPSULE PO SCH (10:13)
[2018-07-11] MEDS: SENNOSIDES/DOCUSATE 8.6-50 MG 1 EACH TABLET PO SCH (10:13)
[2018-07-11] MEDS: DOCUSATE SODIUM 100 MG CAPSULE PO SCH ×2 (10:13→19:03)
[2018-07-12] MEDS: IBUPROFEN 800 MG TABLET PO SCH (06:43)
[2018-07-12 08:55] VITALS: BP 114/71
--- NOTE | 2018-07-12 09:28 | PDOC DISCHARGE SUMMARY ---
Final Diagnosis Discharge Date: 07/12/18 - Final Diagnosis (1) Delivery normal Is this a current diagnosis for this admission?: Yes (2) Obstetric vaginal laceration, delivered, current hospitalization Is this a current diagnosis for this admission?: Yes Discharge Data - Discharge Medication Home Medications: Vits96/Iron Fum/Folic [ Tablet] 1 each PO DAILY 06/15/18 Acyclovir [Acyclovir 400 mg Tablet] 400 mg PO BID 07/04/18 Procedures: NST Intrapartum Procedure(s): Spontaneous Vaginal Delivery Complication(s): Laceration-Perineal Laceration-Degree: 2nd - Diagnosis Test Laboratory: Temp Pulse Resp BP Pulse Ox 98 F 53 L 18 114/71 100 07/12/18 07:56 07/12/18 07:56 07/12/18 07:56 07/12/18 07:56 07/12/18 07:56 07/09/18 07/09/18 07/11/18 21:30 23:35 06:40 RBC 4.46 3.94 Hgb 12.4 11.0 L Hct 34.6 L 30.8 L Urine Opiates Screen NEGATIVE - Discharge information/Instructions Discharge Activity: Balance Activity w/Rest, Pelvic Rest Discharge Diet: Regular Disposition: HOME, SELF-CARE Follow [facility] with: [facility] in: 4, Weeks
[2018-07-12] MEDS: SENNOSIDES/DOCUSATE 8.6-50 MG 1 EACH TABLET PO SCH (10:25)
[2018-07-12] MEDS: PRENATAL VITAMIN W DHA CAPSULE PO SCH (10:25)
[2018-07-12] MEDS: FERROUS SULFATE 325 MG TABLET PO SCH (10:26)
[2018-07-12] MEDS: DOCUSATE SODIUM 100 MG CAPSULE PO SCH (10:26)
[2018-07-12] MEDS: FAMOTIDINE 20 MG TABLET PO SCH (10:26)
== END 2018-07-12 12:40 | disposition home or self-care (01) | DRG 807 ==
LOC: LC 21:20 → LR 23:16 → 2S 07-10 19:34
PROVIDERS: ADMIT Obstetrics & Gynecology; ATTEND Obstetrics & Gynecology
PROC: 10E0XZZ Delivery of Products of Conception, External Approach (ICD-10-PCS; principal; 2018-07-10)
PROC: 0KQM0ZZ Repair Perineum Muscle, Open Approach (ICD-10-PCS; 2018-07-10)
DX: O24.420 Gestational diabetes mellitus in childbirth, diet controlled (principal); Z37.0 Single live birth; O63.1 Prolonged second stage (of labor); O99.824 Streptococcus B carrier state complicating childbirth; O69.81X0 Labor and delivery complicated by cord around neck, without compression, not applicable or unspecified; O76 Abnormality in fetal heart rate and rhythm complicating labor and delivery; O70.1 Second degree perineal laceration during delivery; O77.0 Labor and delivery complicated by meconium in amniotic fluid; Z3A.40 40 weeks gestation of pregnancy
CPT/HCPCS: 36415; 59025; 80307; 81005; 85025; 85027; 86592; 86850; 86900; 86901; J2370; J2540; J2590; J3010; J3490; S0119